=== PATIENT | male | born 1995 | race Two or more races ===

== ENCOUNTER 2020-09-20 17:22 | Emergency (ER) | payer SELFPAY ==
[~2020-09-20] VITALS: Ht 170.2 cm; Wt 90.0 kg
[2020-09-20 23:41] LABS: BASOPHILS % 0.6 % (0.0-2.0); HEMATOCRIT. 40.6 % (42.0-52.0); HEMOGLOBIN. 13.4 g/dL (14.0-18.0); LYMPHOCYTES % 20.9 % (20.0-50.0); MEAN CORPUSCULAR HEMOGLOBIN 26.9 pg (28.0-32.0); MEAN CORPUSCULAR VOLUME 81.6 fL (80.0-94.0); MEAN PLATELET VOLUME 7.8 fl (7.4-10.4); MONOCYTES % 7.6 % (2.0-8.0); NEUTROPHILS % 69.9 % (40.0-76.0); PLATELET 376 x1000/uL (130-400); RED BLOOD CELL COUNT 4.97 mill/uL (4.7-6.1); RED CELL DISTRIBUTION WIDTH 13.4 % (11.6-14.6)
[2020-09-20 23:45] LABS: CHLORIDE 110 mEq/L (98-107)
[2020-09-20 23:52] LABS: ETHANOL BLOOD < 10 mg/dL
[2020-09-21 05:47] VITALS: BP 136/89
== END 2020-09-21 05:48 | disposition home or self-care (01) ==
LOC: ER 17:22
DX: Z77.098 Contact with and (suspected) exposure to other hazardous, chiefly nonmedicinal, chemicals (principal); Z78.1 Physical restraint status; Z59.0 Homelessness
CPT/HCPCS: 36415; 80048; 80307; 80320; 80329; 85025; 93005; 99284; G0480